=== PATIENT | female | born 1970 | race Caucasian/White ===

== ENCOUNTER 2017-04-10 16:48 | Outpatient (CLI) | payer MEDICAID, OTHER ==
--- NOTE | 2017-04-10 19:24 | RAD ---
TWO VIEWS CHEST 04/10/17 PROVIDED CLINICAL HISTORY: Pneumonia. FINDINGS: Comparison was made with the study dated 03/25/17. The cardiac and mediastinal silhouette is unchanged in appearance. There is left basilar pleural pare nchymal opacity likely reflecting pleural effusion with adjacent atelectasis or infiltrates. The righ t lung appears free of significant opacity. There is no evidence for pneumothorax. IMPRESSION: Left basilar pleural parenchymal opacity. Followup is recommended. POS: JESSICAH
== END 2017-04-10 16:49 | disposition home or self-care (01) ==
LOC: MADRAD 16:48
PROVIDERS: ATTEND Physician Assistant
DX: J16.8 Pneumonia due to other specified infectious organisms (principal); R91.8 Other nonspecific abnormal finding of lung field
CPT/HCPCS: 71020

== ENCOUNTER 2017-05-24 10:57 | Outpatient (CLI) | payer OTHER ==
--- NOTE | 2017-05-24 11:54 | RAD ---
RADIOGRAPH CHEST 2 VIEWS: Date: 05/24/17. Time: 11:11 a.m. HISTORY: A 46-year-old female for followup of abnormal chest radiograph. COMPARISON: 04/10/17. FINDINGS: There continues to be a small left pleural effusion, with adjacent subsegmental atelectasis of the un derlying posterior base of the left lung. Otherwise, the rest of the lungs are clear. There is a ne w finding of blunting of the contralateral right posterior costophrenic angle, suggestive of a smalle r right pleural effusion. Cardiomediastinal silhouette is normal. No pulmonary edema. There is a n ew subtle finding of a faint, small, approximately 1 cm nodular density overlying the right mid lung zone, overlapping the posterior aspect of the right 7th rib. It is uncertain whether this is a true pulmonary nodule or artifact. IMPRESSION: 1. Persistent small left pleural effusion. 2. New contralateral tiny right pleural effusion. 3. Questionable right-sided pulmonary nodule versus artifact. 4. Continued followup is recommended. JN [] POS: OFF
== END 2017-05-24 10:58 | disposition home or self-care (01) ==
LOC: MADRAD 10:57
PROVIDERS: ATTEND Physician Assistant
DX: R93.8 Abnormal findings on diagnostic imaging of other specified body structures (principal); J90 Pleural effusion, not elsewhere classified
CPT/HCPCS: 71046

== ENCOUNTER 2017-11-06 11:54 | Outpatient (CLI) | payer OTHER ==
--- NOTE | 2017-11-06 12:57 | RAD ---
TWO VIEW CHEST SERIES: INDICATIONS: History of pneumonia. COMPARISON: 05/24/2017 FINDINGS: Previously described vague nodular density of the right perihilar region is less conspicuous. Prior pleural fluid has resolved. There is no lobar consolidation. The cardiac silhouette is normal in si ze. There is a new, vague density, small in size, at the lateral left mid hemithorax, not localized on the lateral projection. IMPRESSION: Interval decreased in conspicuity of prior nodular density in the right perihilar region. There is a new vague nodular density at the lateral aspect of the left mid hemithorax. Findings could relate t o waxing and waning infectious/inflammatory foci, given history of pneumonia. Underlying pulmonary n odule not excluded. As a conservative measure, recommend CT thorax for further evaluation. Interval resolution of prior pleural fluid. CODE T POS: RASHARD
== END 2017-11-06 11:55 | disposition home or self-care (01) ==
LOC: MADRAD 11:54
PROVIDERS: ATTEND Physician Assistant
DX: R93.8 Abnormal findings on diagnostic imaging of other specified body structures (principal); J18.9 Pneumonia, unspecified organism
CPT/HCPCS: 71046

== ENCOUNTER 2017-11-22 09:34 | Outpatient (CLI) | payer OTHER ==
[2017-11-22] MEDS ORDERED: Iopamidol 370 76% 125 ML VIAL FS ONE (10:20)
--- NOTE | 2017-11-22 14:08 | CT ---
CT CHEST WITH IV CONTRAST: HISTORY: Lung nodule. Recurrent pneumonia. FINDINGS: No focal _consolidation_, lung mass, or infiltrate. No pleural fluid or pneumothorax. No evidence o f mediastinal adenopathy. Small amount of residual thymus within the upper anterior mediastinum. Sclerotic healing of a fracture at the anterolateral aspect of the left fourth rib accounts for the d ensity on recent chest radiograph. There are also healing fractures of the anterior aspect of the le ft second and right fifth ribs. Bariatric surgical changes of the stomach. IMPRESSION: Healing rib fractures, including a healing fourth rib fracture on the left that accounts for density on recent chest radiograph. No lung abnormalities are apparent. POS: RASHARD
== END 2017-11-22 09:35 | disposition home or self-care (01) ==
LOC: MADCT 09:34
PROVIDERS: ATTEND Physician Assistant
DX: R91.8 Other nonspecific abnormal finding of lung field (principal); S22.32XD Fracture of one rib, left side, subsequent encounter for fracture with routine healing
CPT/HCPCS: 71260